=== PATIENT | male | born 1965 | race Caucasian/White ===

== ENCOUNTER 2019-06-30 08:54 | Emergency (ER) | payer SELFPAY ==
[~2019-06-30] VITALS: Ht 157.5 cm; Wt 75.0 kg
[~2019-06-30 08:54] MED LIST: CIPR500T4 PO; IBUP-1542 PO; TRAM50TA2 PO
[2019-06-30 08:58] VITALS: BP 127/73; PULSE 73; RESP 18; Ht 157.5 cm; Wt 75.0 kg
[2019-06-30] MEDS ORDERED: CEFTRIAXONE 1 GM/50 ML (PMX) 50 ML IVPB ONE (11:30)
[2019-06-30] MEDS ORDERED: LIDOCAINE /PF 2% 10 ML AMPUL IJ ONE (12:00)
[2019-06-30] MEDS ORDERED: CEFTRIAXONE 1 GM INJ IM ONE (12:00)
== END 2019-06-30 12:04 | disposition home or self-care (01) ==
LOC: FTE 08:54
DX: S39.94XA Unspecified injury of external genitals, initial encounter (principal); F17.210 Nicotine dependence, cigarettes, uncomplicated; X58.XXXA Exposure to other specified factors, initial encounter; Y92.9 Unspecified place or not applicable
CPT/HCPCS: 76870; 81003; 96372; 99285; J0696